=== PATIENT | female | born 1980 | race Caucasian/White ===

== ENCOUNTER 2024-05-24 13:16 | Emergency (ER) | payer BC, SELFPAY ==
--- NOTE | 2024-05-24 13:29 | ED.ABDPAIN ---
HPI - Abdominal Pain General Chief Complaint: Abdominal Pain Stated Complaint: abdominal pain Time Seen by Provider: 05/24/24 13:24 Source: patient Mode of arrival: ambulatory Limitations: no limitations History of Present Illness HPI narrative: Patient is a 44-year-old male who presents with right mid abdominal/lower quadrant abdominal pain. Patient reports pain started yesterday evening and was intermittent but notes constant. Pain is a 10 on 10 with movement. Abdomen is tender to touch. Last meal was yesterday evening. Denies any fever, chills, nausea, vomiting, diarrhea. Had similar abdominal pain last year and found free air on CT scan. Related Data Home Medications ?Medication ?Instructions ?Recorded ?Confirmed ?Last Taken ?Type cetirizine 10 mg capsule (All Day 10 mg PO DAILY PRN allergy symptoms 05/24/24 Unknown History Allergy (cetirizine)) multivitamin (Daily Multi-Vitamin 1 tablet PO DAILY 05/24/24 Unknown History tablet) Allergies Allergy/AdvReac Type Severity Reaction Status Date / Time erythromycin base AdvReac Intermediate Headache Verified 05/24/24 14:00 fluticasone (From Flonase) AdvReac Mild Nose Bleed Verified 05/24/24 14:00 azithromycin (From Zithromax AdvReac Palpitation Verified 05/24/24 14:00 Z-Cosme) s Entex PSE AdvReac Palpitation Uncoded 05/16/24 14:21 s Review of Systems Review of Systems: All systems reviewed & are unremarkable except as noted in HPI and below Constitutional: Constitutional: Denies body ache(s), Denies chills, Denies fatigue, Denies fever(s), Denies headache(s), Denies malaise and Denies weakness Eyes: Eyes: Denies blurry vision, Denies irritation and Denies loss of vision ENT: Denies otalgia, Denies headache(s), Denies nasal discharge, Denies sinus pain and Denies sore throat Cardiovascular: Cardiovascular: Denies chest pain, Denies irregular heart rhythm and Denies dyspnea Respiratory: Respiratory: Denies dyspnea Gastrointestinal: Gastrointestinal: Reports abdominal pain, Denies melena, Denies hematochezia, Denies diarrhea, Denies nausea and Denies vomiting Musculoskeletal: Musculoskeletal: Denies back pain, Denies myalgias and Denies arthralgias Integumentary/Breasts: Skin/Breast: Denies pruritus and Denies rash Neurologic: Denies headache(s), Denies loss of vision and Denies weakness Psychiatric: Psychiatric: Reports no additional psychiatric complaints Endocrine: Endocrine: Denies fatigue PMFSH Past Medical History Medical History Seasonal allergies Otosclerosis Surgical History Surgical History History of ear surgery 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, 03/22/2018 right at [facility] Family History Family History Father Diabetes mellitus Mother Diabetes mellitus Family history of cardiac disorder Sibling Asthma Social History Social History Social History: 05/09/24 very confident with medical forms Smoking status: Never smoker Alcohol intake: current Substance use: never Substance use type: does not use Do You Feel Safe in your Home?: Yes Lack of Transportation: No Lack of Food: Never True Current Housing: I Have Housing Concerned About Future Housing: No Difficulty Paying Gas/Electric Bills: No Difficulty Paying for Meds: No Currently Unemployed: No Education: High School Diploma/GED Difficulty w/ Childcare or Family Care: No Living arrangements: alone Occupation/Education: occupation Gender identity (if verbalized by the patient): Female Comments At time of signature, agree with nursing past medical, surgical, social and family history. There is no relevant family history pertinent to the presenting complaint. Exam Const: General: cooperative, healthy appearing, comfortable, no acute distress and well nourished Nutritional Appearance: well nourished Orientation/consciousness: patient oriented x3 Limitations: no limitations HENMT: Head: normal to inspection, normocephalic and atraumatic Ears: hearing grossly normal bilaterally and external ears normal Face/Nose/Sinus: Normal external nose present, normal facial exam and face symmetric Face and sinus: normal facial exam and face symmetric Mouth: Yes lip normal Eyes: General: appearance normal, both eyes and all related structures Alignment and Position: alignment normal and position normal Periorbital: periorbital findings normal Eyelids: eyelids normal Pupils: Equal, round and reactive pupils present EOM: EOMs intact bilaterally Neck: Neck: normal visual inspection, full ROM and supple Chest: Chest palpation & inspection: normal inspection of the chest Resp: Effort & Inspection: normal respiratory effort and able to speak in complete sentences Auscultation: clear to auscultation bilaterally Cardio: Rate: tachycardic Rhythm: regular rhythm Heart sounds: S1 normal heart sound present and S2 normal heart sound present GI: Inspection: normal to inspection GI Palp: Yes abdominal tenderness, Yes Soft to palpation, Yes Guarding due to palpation present (GI) and Yes Rebound tenderness present Auscultation: normal bowel sounds Rectal Exam: deferred Skin: General skin exam: normal color and no rashes or lesions noted Neuro: General: patient oriented x3 and moves all extremities Cranial nerves: Yes Equal, round and reactive pupils present Speech: normal speech Gait exam (Neuro): Normal gait present Extrem: General: normal to inspection, full ROM and no edema Psych: Appearance: grossly normal and well kempt Mental Status: mental status grossly normal Speech and movement: Normal speech and movement present Affect: normal affect Attitude: cooperative Thought process: Normal thought process present Course Course Emergency Course: Patient being transferred to [facility] for additional imaging and workup to rule out appendicitis. Portions of this record may have been created with voice recognition software Level of Care: Express Care Visit Vital Signs Vital signs: Vital Signs Temperature 37.3 C 05/24/24 13:31 Pulse Rate 105 H 05/24/24 13:31 Respiratory Rate 18 05/24/24 13:31 Blood Pressure 119/75 05/24/24 13:31 Pulse Oximetry 98 05/24/24 13:31 Oxygen Delivery Room Air 05/24/24 13:31 Temperature 37.3 C 05/24/24 13:31 Pulse Rate 105 H 05/24/24 13:31 Respiratory Rate 18 05/24/24 13:31 Blood Pressure 119/75 05/24/24 13:31 Pulse Oximetry 98 05/24/24 13:31 Oxygen Delivery Room Air 05/24/24 13:31 Reviewed Transfer Transfered to: Other ([facility]) Transportation: Other (Private auto) Transfer rationale: Patient being transferred to [facility] for additional imaging and workup to rule out appendicitis. Accepting physician: Damaso WOOD MDM - Abdominal Pain MDM Narrative Medical decision making narrative: Patient being transferred to [facility] for additional imaging and workup to rule out appendicitis. Patient is instructed to be NPO. Differential Diagnosis Differential diagnosis: Likely abdominal pain and acute appendicitis Medical Records Attestation: I reviewed the patient's medical records. Discharge Plan Discharge Clinical Impression: Abdominal pain Qualifiers: Abdominal location: right lower quadrant Qualified Code(s): R10.31 - Right lower quadrant pain Patient Disposition: Acute Care Hospital Condition: Stable Patient Language: Angolan Prescriptions: No Action multivitamin [Daily Multi-Vitamin] Tablet 1 tablet PO DAILY All Day Allergy (cetirizine) 10 mg capsule 10 mg PO DAILY PRN (Reason: allergy symptoms) montelukast 10 mg tablet 10 mg PO DAILY Qty: 90 3RF Follow-up/Referrals: Noelle Samuel PA-C [Primary Care Provider] - Time of Disposition: 14:12
[2024-05-24 13:31] VITALS: BP 119/75; PULSE 105; RESP 18; TEMP 37.3; O2SAT 98
--- OUTSIDE RECORDS SUMMARY | 2024-05-29 09:02 | XMS_ITS | Clinical Summary ---
Author Organization [facility] Address [address] [place] [address]. [place] [address] [place] [address] Care Team Providers Care In Store Banker Name Role Phone Noelle Samuel PA-C Primary Care Provider +1- [phone] Allergies Active Allergy Reactions Criticality Noted Date Comments Hydrocodone-Acetaminophen Unknown 11/25/2013 Medications ondansetron (ZOFRAN ODT) 4 MG disintegrating tablet Take 1 tablet (4 mg total) by mouth every 8 (eight) hours as needed for Nausea. 15 tablet 0 Active dicyclomine (BENTYL) 20 MG tablet Take 1 tablet (20 mg total) by mouth every 6 (six) hours as needed (abd pain/crampi ng). 20 tablet 3 Active ibuprofen (MOTRIN) 400 MG tablet Take 1 tablet (400 mg total) by mouth every 6 (six) hours as needed for Pain. 30 tablet 5 05/17/19 25 Encounters Date Type Department Care Team Description 05/24/2024 2:39 PM SPOOL TENDER - 05/24/2024 6:05 PM [facility] Emergency [facility] Emergency Room [address] [place] [address] Paco Naidu MD Abdominal Pain Discharge Disposition: Home or Self Care (Routine Discharge) 05/24/2024 Travel 05/07/2024 11:52 AM SPOOL TENDER - 05/07/2024 2:18 PM [facility] Emergency [facility] Emergency Room [id number] [place] [address] Pascual Oleary MD Foot Injury Discharge Disposition: Home or Self Care (Routine Discharge) 05/07/2024 Travel from Last 3 Months Social History Tobacco Use Types Packs/Day Years Used Date Smoking Tobacco: Never Smokeless Tobacco: Never Alcohol Use Standard Drinks/Week Comments Never 0 (1 standard drink = 0.6 oz pur e alcohol) AUDIT-C Answer Date Recorded Frequency of Alcohol Consumption Never 07/31/2019 Average Number of Drinks Not on file 020 Frequency of Binge Drinking Not on file 07/06 Comments Unknown Sex and Gender Information Value Date Recorded Sex Assigned at Female 05/24/2024 2:34 PM SPOOL TENDER Legal Sex Female 7:25 PM CDT Gender Identity Not on file Sexual Orientation Not on file Last Filed Vital Signs Vital Sign Reading Time Taken Comments Blood Pressure 123/72 05/24/2024 6:07 PM SPOOL TENDER Pulse 72 05/24/2024 6:07 PM SPOOL TENDER Temperature 37.1 ??C (98.7 ??F) 05/24/2024 6:07 PM CS T Respiratory Rate 18 05/24/2024 6:07 PM SPOOL TENDER Oxygen Saturation 98% 05/24/2024 6:07 PM SPOOL TENDER Inhaled Oxygen Concentration - - Weight 64.4 kg (142 lb) 05/24/2024 2:44 PM SPOOL TENDER Height 157.5 cm (5' 2 ) 05/24/2024 2:44 PM SPOOL TENDER Body Mass Index 25.97 05/24/2024 2:44 PM SPOOL TENDER Plan of Treatment Health Maintenance Due Date Last Done Comments Cervical Cancer Screening Pa p Smear (Age 30 to 64) Every 3 Years 1980 Annual Physical 01/09/1983 Hepatitis C 01/09/1998 DTaP, Tdap and Td Vaccines ( 1 - Tdap) 01/09/1999 Hepatitis B Vaccines (1 of 3 - 19+ 3-dose series) 01/09/1999 Cervical Cancer Screening Pa p with HPV Testing (Age 30 to 64) Every 5 Years 01/09/2010 Cervical Cancer Screening wi th HPV 01/09/2010 Mammogram Screening 2020 COVID-19 Vaccine (2 - 2023-2 5 season) 2024 07/13/2020 Influenza Adult (#1) 2024 05/07/2017, 03/10/2017, 03/22/2014 HPV Vaccines Aged Out No longer eligi ble based on patient's age to complete this topic Meningococcal B Vaccine Aged Out No l onger eligible based on patient's age to complete this topic Meningococcal Vaccine Aged Out No isi bhavik eligible based on patient's age to complete this topic Pneumococcal Vaccine: Pediatrics (0 to 5 Years) and At-Risk Patients (6 to 64 Years) Aged Out No longer eligible b ased on patient's age to complete this topic RSV Immunizations Under 20 Months Aged Out No longer eligible b ased on patient's age to complete this topic Procedures Procedure Name Priority Date/Time Associated Diagnosis Comments CT ABD+PEL W CON STAT 05/24/2024 4:07 PM SPOOL TENDER URINALYSIS, AUTO, COMPLETE STAT 05/24/2024 3:44 PM SPOOL TENDER CHORIONIC GONADOTROPIN HCG QL STAT 05/24/2024 2:50 PM SPOOL TENDER LIPASE STAT 05/24/2024 2:50 PM SPOOL TENDER COMPREHENSIVE METABOLIC PANEL STAT 05/24/2024 2:50 PM SPOOL TENDER CBC W/DIFF AUTOMATED STAT 05/24/2024 2:50 PM SPOOL TENDER XR FOOT LT 3V STAT 05/07/2024 1:02 PM SPOOL TENDER from Last 3 Months Results * CT ABD+PEL W IV CON ONLY (05/24/2024 4:07 PM SPOOL TENDER) Anatomical Region Laterality Modality Abdomen Computed Tomogra phy 05/24/2024 5:17 PM SPOOL TENDER Impressions 05/24/2024 5:22 PM SPOOL TENDER IMPRESSION: 1. No definite acute abnormalities identified in the abdomen or pelvis. 2. Right ovarian 1.8 cm corpus luteum cyst with minimal free fluid in the pelvis. 3. Somewhat heterogeneous hypodense appearance of the lower uterine segment/cervix, similar to prior. Could further evaluate with pelvic ultrasound. 4. Please see above for additional chronic, incidental, and nonemergent findings elsewhere. Ordered By: PACO NAIDU Interpreted By: Deo Rico MD, 05/24/2024 5:17 PM Narrative 05/24/2024 5:22 PM SPOOL TENDER [facility] [address] [place] [id number] DATE: 05/24/2024 3:58 PM EXAMINATION: CT Abdomen and Pelvis with contrast CLINICAL HISTORY: Right upper and mid abdominal pain. COMPARISON: 10/29/2022 TECHNIQUE: Computed tomography of the abdomen and pelvis was obtained after administration of intravenous contrast, 75mL IOPAMIDOL 76 % IV SOLN, without immediate complication according to routine protocol. A dose lowering technique was used for this procedure, which may include, but is not limited to, dose reduction technique, automated exposure control, the use of iterative reconstruction, and ALARA (As Low As Reasonably Achievable) / Image Gently techniques. FINDINGS: Images of the lower chest reveal bibasilar atelectasis. Scattered hypodensities again noted in the liver, possibly cysts or hemangiomas. Gallbladder, spleen, pancreas, adrenal glands, and kidneys are unremarkable. Enhanced retroperitoneal vascular structures are unremarkable. No bulky mesenteric or retroperitoneal lymphadenopathy. Stomach and small bowel loops are nondilated. Normal appendix. Scattered solid feces in the colon. No findings of bowel obstruction. No free fluid or free air in the abdomen. Sigmoid colon and rectum are unremarkable. Probable uterine fibroid. Right ovarian 1.8 cm corpus luteum cyst. Minimal pelvic free fluid. Somewhat heterogeneously hypodense appearance of the lower uterine segment/cervix, similar to prior. No bulky pelvic or inguinal lymphadenopathy. Bladder underdistended. Osseous structures reveal no definite acute findings. Procedure Note Deo Rico MD - 05/24/2024 [facility] [address] [place] [address] DATE: 05/24/2024 3:58 PM EXAMINATION: CT Abdomen and Pelvis with contrast CLINICAL HISTORY: Right upper and mid abdominal pain. COMPARISON: 10/29/2022 TECHNIQUE: Computed tomography of the abdomen and pelvis was obtainedafter administration of intravenous contrast, 75mL IOPAMIDOL 76 % IV SOLN,without immediate complication according to routine protocol. A dose lowering technique was used for this procedure, which may include,but is not limited to, dose reduction technique, automated exposurecontrol, the use of iterative reconstruction, and ALARA (As Low AsReasonably Achievable) / Image Gently techniques. FINDINGS: Images of the lower chest reveal bibasilar atelectasis. Scattered hypodensities again noted in the liver, possibly cysts orhemangiomas. Gallbladder, spleen, pancreas, adrenal glands, and kidneysare unremarkable. Enhanced retroperitoneal vascular structures areunremarkable. No bulky mesenteric or retroperitoneal lymphadenopathy. Stomach and small bowel loops are nondilated. Normal appendix. Scatteredsolid feces in the colon. No findings of bowel obstruction. No free fluidor free air in the abdomen. Sigmoid colon and rectum are unremarkable. Probable uterine fibroid. Rightovarian 1.8 cm corpus luteum cyst. Minimal pelvic free fluid. Somewhatheterogeneously hypodense appearance of the lower uterine segment/cervix,similar to prior. No bulky pelvic or inguinal lymphadenopathy. Bladderunderdistended. Osseous structures reveal no definite acute findings. IMPRESSION: 1. No definite acute abnormalities identified in the abdomen or pelvis. 2. Right ovarian 1.8 cm corpus luteum cyst with minimal free fluid in thepelvis. 3. Somewhat heterogeneous hypodense appearance of the lower uterinesegment/cervix, similar to prior. Could further evaluate with pelvicultrasound. 4. Please see above for additional chronic, incidental, and nonemergentfindings elsewhere. Ordered By: PACO NAIDU Interpreted By: Deo Rico MD, 05/24/2024 5:17 PM us Paco Naidu MD CT Final Resu lt * (ABNORMAL) URINALYSIS, AUTO, COMPLETE (05/24/2024 3:44 PM SPOOL TENDER) COLOR (U) YELLOW 05/24/2024 4:01 PM SPOOL TENDER [facility] TRANSPARENCY CLEAR 05/24/2024 4:01 PM SPOOL TENDER [facility] SPECIFIC GRAVITY (U) >1.030(H) 1.000 - 1.030 05/24/2024 4:01 PM [facility] U PH 6.0 5.0 - 9.0 05/24/2024 4:01 PM [facility] LEUKOCYTES (U) NEGATIVE NEGATIVE 05/24/2024 4:01 PM [facility] NITRITES NEGATIVE NEGATIVE 05/24/2024 4:01 PM [facility] PROTEIN RANDOM (U) NEGATIVE NEGATIVE 05/24/2024 4:01 PM [facility] GLUCOSE (U) NEGATIVE NEGATIVE 05/24/2024 4:01 PM [facility] KETONES MG/DL (U) 2+(A) NEGATIVE 05/24/2024 4:01 PM [facility] BILIRUBIN (U) NEGATIVE NEGATIVE 05/24/2024 4:01 PM [facility] BLOOD (U) NEGATIVE NEGATIVE 05/24/2024 4:01 PM [facility] WBC/HPF 0-5 0 - 5 /HPF 05/24/2024 4:01 PM [facility] RBC/HPF 0-5 0 - 5 /HPF 05/24/2024 4:01 PM [facility] EPI/HPF FEW /HPF 05/24/2024 4:01 PM [facility] BACTERIA (U) FEW /HPF 05/24/2024 4:01 PM [facility] URINE SPECIMEN OBTAINED BY CLEAN CATCH PROCEDURE / Unknown 05/24/2024 3:44 PM SPOOL TENDER us Paco Naidu MD URINE ORDERABLES Final Res ult [facility] [address] [place] [address], * (ABNORMAL) COMPREHENSIVE METABOLIC PANEL (05/24/2024 2:50 PM SPOOL TENDER) [facility] GLUCOSE 108(H) 70 - 99 MG/DL 05/24/2024 3:29 PM [facility] BUN 11 7 - 18 MG/DL 05/24/2024 3:29 PM [facility] CREATININE S/P/B 0.89 0.55 - 1.02 MG/DL 05/24/2024 3:29 PM [facility] SODIUM S/P/B 138 136 - 145 MMOL/L 05/24/2024 3:29 PM [facility] POTASSIUM S/P/B 4.5 3.5 - 5.1 MMOL/L 05/24/2024 3:29 PM [facility] CHLORIDE S/P/B 101 100 - 108 MMOL/L 05/24/2024 3:29 PM [facility] CO2 27.8 21 - 32 MMOL/L 05/24/2024 3:29 PM [facility] CALCIUM S/P/B 9.3 8.5 - 10.1 MG/DL 05/24/2024 3:29 PM [facility] BILIRUBIN TOTAL S/P/B 0.4 0.2 - 1.2 MG/DL 05/24/2024 3:29 PM [facility] TOTAL PROTEIN S/P/B 7.9 6.4 - 8.2 G/DL 05/24/2024 3:29 PM [facility] ALBUMIN S/P/B 4.4 3.4 - 5.0 G/DL 05/24/2024 3:29 PM [facility] AST 17 15 - 37 U/L 05/24/2024 3:29 PM [facility] ALT 26 14 - 55 U/L 05/24/2024 3:29 PM SPOOL TENDER [facility] ALKALINE PHOSPHATASE S/P/B 58 50 - 136 U/L 05/24/2024 3:29 PM [facility] ANION GAP 9.2 5 - 15 MMOL/L 05/24/2024 3:29 PM [facility] BUN CREATININE RATIO 12.4 6 - 26 05/24/2024 3:29 PM [facility] A/G RATIO 1.3 1.0 - 2.0 RATIO 05/24/2024 3:29 PM [facility] GFR ESTIMATE 82(L) >90 ML/MIN/1.7 3 M2 05/24/2024 3:29 PM SPOOL TENDER [facility] Comment: NOTE: eGFR is not calculated for patients <18 years of age. This is an estimated GFR calculation using the new CKD EPI creatinine equation without race and so does not require a correction factor for race. This estimated GFR should not be used for calculating drug doses. 05/24/2024 2:50 PM SPOOL TENDER Paco Naidu MD LABORATORY Final Resu lt Performing Organization Address City/[facility]/ZIP Co de Phone Number [facility] [address] [place] [address], [place] [phone] * Qualitative HCG (05/24/2024 2:50 PM SPOOL TENDER) PREG SCREEN-SERUM NEGATIVE NEGATIVE 05/24/2024 3:24 PM SPOOL TENDER [facility] 05/24/2024 2:50 PM SPOOL TENDER Paco Naidu MD LABORATORY Final Resu lt [facility] [address] [place] [address], [place] [phone] * (ABNORMAL) CBC W/DIFF AUTOMATED (05/24/2024 2:50 PM SPOOL TENDER) [facility] Signature WBC 6.78 4.4 - 11.0 x10'3/uL 05/24/2024 3:21 PM [facility] RBC 4.48(L) 4.50 - 5.10 x10'6/uL 05/24/2024 3:21 PM [facility] HGB 13.7 12.3 - 15.3 G/DL 05/24/2024 3:21 PM [facility] HCT 38.4 35.9 - 44.6 % 05/24/2024 3:21 PM [facility] MCV 85.7 80.0 - 96.0 FL 05/24/2024 3:21 PM [facility] MCH 30.6 25.3 - 30.9 PG 05/24/2024 3:21 PM [facility] MCHC 35.7(H) 31.0 - 34.1 G/DL 05/24/2024 3:21 PM [facility] RDW 12.8 12.4 - 15.1 % 05/24/2024 3:21 PM [facility] PLT 214 151 - 353 x10'3/uL 05/24/2024 3:21 PM [facility] MPV 10.2 9.6 - 12.0 FL 05/24/2024 3:21 PM [facility] RBC MORPHOLOGY NORMAL 05/24/2024 3:21 PM [facility] PLT MORPH. NORMAL 05/24/2024 3:21 PM [facility] WBC MORPHOLOGY NORMAL 05/24/2024 3:21 PM [facility] LYMPHOCYTES % 10.5(L) 15.8 - 45.0 % 05/24/2024 3:21 PM SPOOL TENDER [facility] NEUTROPHILS % 77.9(H) 42.1 - 71.9 % 05/24/2024 3:21 PM [facility] MONOCYTES % 10.8 5.7 - 12.5 % 05/24/2024 3:21 PM [facility] EOSINOPHILS 0.1 0.0 - 5.6 % 05/24/2024 3:21 PM [facility] BASOPHILS 0.4 0.0 - 1.3 % 05/24/2024 3:21 PM [facility] ABS. NEUTROPHILS 5.28 1.40 - 6.00 x10'3/uL 05/24/2024 3:21 PM SPOOL TENDER [facility] IMMATURE GRANS % 0.3 0.0 - 0.5 % 05/24/2024 3:21 PM [facility] ABS. LYMPHOCYTES 0.71(L) 0.80 - 4.70 x10'3/uL 05/24/2024 3:21 PM [facility] 05/24/2024 2:50 PM SPOOL TENDER us Paco Naidu MD LABORATORY Final Resu lt [facility] [address] [place] [address], * LIPASE (05/24/2024 2:50 PM SPOOL TENDER) LIPASE 36 16 - 77 UNITS/L 05/24/2024 3:29 PM SPOOL TENDER [facility] 05/24/2024 2:50 PM SPOOL TENDER us Paco Naidu MD LABORATORY Final Resu lt [facility] [address] [place] [address], [place] [phone] * XR FOOT LT 3V (05/07/2024 1:02 PM SPOOL TENDER) Anatomical Region Laterality Modality Foot Radiographic Rebeca ging 05/07/2024 1:03 PM SPOOL TENDER Impressions 05/07/2024 1:04 PM SPOOL TENDER IMPRESSION: Mildly displaced fracture of the proximal phalanx of the fifth toe Ordered By: PASCUAL OLEARY Interpreted By: Adis Davila MD, 05/07/2024 1:03 PM Narrative 05/07/2024 1:04 PM SPOOL TENDER [facility] [address] [facility] [place] [address] 4 VIEWS OF THE LEFT FOOT CLINICAL HISTORY: Pain COMPARISON: None 4 views of the left foot demonstrate a mildly displaced oblique fracture proximal phalanx of the fifth toe. Otherwise, the bony elements are intact throughout. The surrounding soft tissues appear normal. Procedure Note Adis Davila MD - 05/07/2024 [facility] [address] [facility] [place] [address] 4 VIEWS OF THE LEFT FOOT CLINICAL HISTORY: Pain COMPARISON: None 4 views of the left foot demonstrate a mildly displaced oblique fractureproximal phalanx of the fifth toe. Otherwise, the bony elements are intactthroughout. The surrounding soft tissues appear normal. IMPRESSION: Mildly displaced fracture of the proximal phalanx of the fifth toe Ordered By: PASCUAL OLEARY Interpreted By: Adis Davila MD, 05/07/2024 1:03 PM Pascual Oleary MD GENERAL IMAGING Final R esult from Last 3 Months Insurance [facility] Care Teams In Store Banker Relationship Specialty Start Date End Date Noelle Samuel PA-C [address] [place], [place] [address] [place] [address] PCP - General PHYSICIAN CONTENT MANAGEMENT CONSULTANT 10/29/22
== END 2024-05-24 14:08 | disposition short-term general hospital (02) ==
PROVIDERS: Emergency Provider Nurse Practitioner Family; PCP Physician Assistant Medical
DX: R10.31 Right lower quadrant pain (principal)
CPT/HCPCS: 99212; G0463

== ENCOUNTER 2024-09-14 10:30 | Emergency (ER) | payer BC, SELFPAY ==
--- OUTSIDE RECORDS SUMMARY | 2024-09-14 10:34 | XMS_ITS | Clinical Summary ---
Author Organization [facility] Address [address] [place] [address] Care Team Providers Care Engineer Automated Equipment Name Role Phone Noelle Samuel PA-C Primary Care Provider +1- [phone] Allergies Active Allergy Reactions Criticality Noted Date [...] (abd pain/crampi ng). 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 Legal Sex Female 7:25 PM CDT Gender Identity Not on file Sexual Orientation Not on file Last Filed Vital Signs Vital Sign Reading Time Taken Comments Blood Pressure 123/72 05/24/2024 6:07 PM DIABETES TRAINER Pulse 72 05/24/2024 6:07 PM DIABETES TRAINER Temperature 37.1 C (98.7 F) 05/24/2024 6:07 PM DIABETES TRAINER Respiratory Rate 18 05/24/2024 6:07 PM DIABETES TRAINER Oxygen Saturation 98% 05/24/2024 6:07 PM DIABETES TRAINER Inhaled Oxygen Concentration - - Weight 64.4 kg (142 lb) 05/24/2024 2:44 PM DIABETES TRAINER Height 157.5 cm (5' 2 ) 05/24/2024 2:44 PM DIABETES TRAINER Body Mass Index 25.97 05/24/2024 2:44 PM DIABETES TRAINER Plan of Treatment Health Maintenance Due Date [...] Every 5 Years 01/09/2010 Cervical Cancer Screening with HPV 01/09/2010 Mammogram Screening 2020 COVID-19 Vaccine (2 - 2023-2 5 season) 2024 07/13/2020 HPV Vaccines Aged Out No longer eligi ble based on patient's age to complete this topic Meningococcal B Vaccine Aged Out No l onger eligible based on patient's age to complete this topic Meningococcal Vaccine Aged Out No isi bhavik eligible based on patient's age to complete this topic Pneumococcal Vaccine: Pediat rics (0 to 5 Years) and At-Risk Patients (6 to 49 Years) Aged Out No longer eligi ble based on patient's age to complete this topic RSV Immunizations Under 20 Months Aged Out No longer eligible based on patient's age to complete this topic Insurance [facility] Care Teams Engineer Automated Equipment Relationship Specialty Start Date End Date Noelle Samuel PA-C [address] [place] [address] [address] [place] [address] PCP - General PHYSICIAN DESK ASSISTANT 10/29/22
[2024-09-14 11:09] VITALS: BP 129/73; PULSE 79; RESP 18; TEMP 36.4; O2SAT 100
--- NOTE | 2024-09-14 12:02 | ED.URI ---
HPI - URI/Sore Throat General Chief Complaint: Upper Respiratory Infection Stated Complaint: upper respiratory/congestion Time Seen by Provider: 09/14/24 11:50 Source: patient, RN notes reviewed and old records reviewed Mode of arrival: ambulatory Limitations: no limitations History of Present Illness HPI Narrative: 44 year old female who presents to [facility] care with complaints of 8 day history of sinus congestion drainage and sinus pressure with cough. Patient reports that she has tried some pseudoephedrine cough and cold medication without resolution of her symptoms. 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 Patient declines offer of swabs for COVID FLU or strep. Pateitnt reports no fevers MD elicited complaint: cough, rhinorrhea, nasal congestion and sinus pain Pertinent past history: other (otosclerosis) Onset (ago): day(s) (8) Severity: moderate Able to tolerate fluids by mouth: Yes Treatments prior to arrival: cold medicine Related Data Home Medications ?Medication ?Instructions ?Recorded ?Confirmed ?Last Taken ?Type cetirizine 10 mg capsule (All Day 10 mg PO DAILY PRN allergy symptoms 05/24/24 05/26/24 Unknown History Allergy (cetirizine)) multivitamin (Daily Multi-Vitamin 1 tablet PO DAILY 05/24/24 05/26/24 Unknown History tablet) Allergies Allergy/AdvReac Type Severity Reaction Status Date / Time dextromethorphan (From Entex Allergy Mild Other Verified 09/14/24 11:19 PAC) guaifenesin (From Entex PAC) Allergy Mild Other Verified 09/14/24 11:19 pseudoephedrine (From Entex Allergy Mild Other Verified 09/14/24 11:19 PAC) erythromycin base AdvReac Intermediate Headache Verified 09/14/24 11:19 fluticasone (From Flonase) AdvReac Mild Nose Bleed Verified 09/14/24 11:19 azithromycin (From Zithromax AdvReac Palpitation Verified 09/14/24 11:19 Z-Cosme) s Review of Systems Review of Systems: CONSTITUTIONAL: Reports malaise, no chills, sweats, or fever. EYES: Denies visual changes, redness, or discharge. ENT: Reports rhinorrhea, congestion, sinus pain, no otalgia and no sore throat. CARDIOVASCULAR: Denies chest pain, palpitations, or edema. RESPIRATORY: Reports cough.? Denies dyspnea. GASTROINTESTINAL: Denies abdominal pain, nausea, vomiting, diarrhea SKIN: Denies rash or itching. MUSCULOSKELETAL: Denies myalgia. NEUROLOGIC: Denies headache. 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, 03/22/2018 right at [facility] Family History Family History Father Diabetes mellitus Mother Diabetes mellitus Family history of cardiac disorder Sibling Asthma Social History Social History Social History: 05/09/24 very confident with medical forms Smoking status: Never smoker Alcohol intake: current Substance use: never Substance use type: does not use Do You Feel Safe in your Home?: Yes Lack of Transportation: No Lack of Food: Never True Current Housing: I Have Housing Concerned About Future Housing: No Difficulty Paying Gas/Electric Bills: No Difficulty Paying for Meds: No Currently Unemployed: No Education: High School Diploma/GED Difficulty w/ Childcare or Family Care: No Living arrangements: alone Occupation/Education: occupation Gender identity (if verbalized by the patient): Female Comments At time of signature, agree with nursing past medical, surgical, social and family history. There is no relevant family history pertinent to the presenting complaint Exam Narrative: GENERAL: Well-appearing, well-nourished, and in no acute distress. HEAD: Normocephalic EYES: PERRLA, conjunctivae clear ENT: Nares clear, turbinates edematous and erythematous, clear discharge, sinus drainage. Mucous membranes moist. TM pearly frazier with dull light reflex bilaterally; no tragal tenderness. Oropharynx erythematous without lesions. Tonsils not enlarged and without exudate, no drooling, no hoarseness, no trismus, uvula midline,post nasal drainage notd NECK: Supple. No lymphadenopathy CHEST: Clear to auscultation, breath sounds equal. No wheezing, rhonchi, rales, or stridor. No respiratory distress, speaks in full sentences.cough noted SAO2 100% on room air HEART: Regular rate and rhythm. No murmur heard. SKIN: Warm, dry, no rash. NEURO: Alert and oriented x3. PSYCH: Normal mood and affect Course Course Emergency Course: Patient is aware of diagnosis, understands and agrees to treatment plan.? Anticipatory guidance given.? Patient agrees to follow-up as directed and is aware of reasons to seek care at the emergency department. Portions of this record may have been created with voice recognition software Level of Care: Express Care Visit Vital Signs Vital signs: Vital Signs Temperature 36.4 C 09/14/24 11:09 Pulse Rate 79 09/14/24 11:09 Respiratory Rate 18 09/14/24 11:09 Blood Pressure 129/73 09/14/24 11:09 Pulse Oximetry 100 09/14/24 11:09 Oxygen Delivery Room Air 09/14/24 11:09 Temperature 36.4 C 09/14/24 11:09 Pulse Rate 79 09/14/24 11:09 Respiratory Rate 18 09/14/24 11:09 Blood Pressure 129/73 09/14/24 11:09 Pulse Oximetry 100 09/14/24 11:09 Oxygen Delivery Room Air 09/14/24 11:09 Reviewed MDM - URI/Sore Throat MDM Narrative Medical decision making narrative: Differential diagnosis considered: Chacko virus, strep pharyngitis, allergic rhinitis, upper respiratory tract infection, sinusitis, rhinosinusitis, nasopharyngitis. viral pharyngitis, otitis media, otitis externa, pneumonia, bronchitis, viral cough syndrome, viral syndrome, and influenza.? Exam findings show no acute concerns or changes; patient is non-toxic appearing and is in no distress.? Patient is appropriate for outpatient treatment and follow-up. Differential Diagnosis Differential diagnosis: Likely upper respiratory infection, sinusitis, viral infection and other (cough) Medical Records Attestation: I reviewed the patient's medical records. Lab Data Attestation: I reviewed the patient's lab results. Lab results narrative: declined swabs Critical Care Time Critical Care Time Critical Care Time: No Discharge Plan Discharge Clinical Impression: Sinusitis Qualifiers: Sinusitis location: pansinusitis Chronicity: acute Recurrence: not specified as recurrent Qualified Code(s): J01.40 - Acute pansinusitis, unspecified Patient Disposition: Home Condition: Stable Instructions: Antibiotic Form, Sinusitis (ED) Additional Instructions: Increase fluids especially juices and water [id number] cough and cold medicine of your choice for your symptoms Zyrtec Claritin or Katelyn daily include plain Sudafed Tylenol or ibuprofen for any fever pain heat to the face 20-30 minutes 4-6 times a day for pain Salt water gargles, throat lozenges or throat sprays as desired Antibiotic as directed--finished the medication If your symptoms persist, change or worsen significantly before you can contact your personal physician then please, without delay, go to the emergency department for further evaluation. Follow-up with PCP in 7-10 days or sooner if needed Follow up with PCP soon in regards to your blood pressure which is elevated above threshold for referral. Blood pressure above 120/80 may indicate pre-hypertension. 129/73 Patient Language: Macedonian Prescriptions: New amoxicillin 500 mg capsule 500 mg PO TID Qty: 30 0RF Rx Instructions: take with food No Action multivitamin [Daily Multi-Vitamin] Tablet 1 tablet PO DAILY All Day Allergy (cetirizine) 10 mg capsule 10 mg PO DAILY PRN (Reason: allergy symptoms) montelukast 10 mg tablet 10 mg PO DAILY Qty: 90 0RF Follow-up/Referrals: Noelle Samuel PA-C [Primary Care Provider] - Time of Disposition: 12:28 Quality [place] Coma Scale Eyes: Open Verbal: Oriented and Alert Motor: Follows Commands [place] Coma Total Score: 15
== END 2024-09-14 12:31 | disposition home or self-care (01) ==
PROVIDERS: Emergency Provider Registered Nurse; PCP Physician Assistant Medical
DX: J01.40 Acute pansinusitis, unspecified (principal); M85.80 Other specified disorders of bone density and structure, unspecified site
CPT/HCPCS: 99213; G0463